=== PATIENT | male | born 1960 | race Caucasian/White ===

== ENCOUNTER 2021-04-12 14:12 | Inpatient (IN) | payer MEDICARE ==
[~2021-04-12] VITALS: Ht 180.3 cm; Wt 101.4 kg
[2021-04-12 18:19] LABS: HEMOGLOBIN 10.6 gm/dl (14.0-17.5); RED BLOOD COUNT 3.45 M/UL (4.20-5.50); WHITE BLOOD COUNT 13.1 K/UL (4.5-11.0)
[2021-04-12 18:37] LABS: BUN/CREATININE RATIO 18 (0-10)
[2021-04-13 04:45] LABS: HEMOGLOBIN 9.6 gm/dl (14.0-17.5); WHITE BLOOD COUNT 11.6 K/UL (4.5-11.0)
[2021-04-13 05:00] LABS: BUN/CREATININE RATIO 18 (0-10)
[2021-04-13 05:22] LABS: RED BLOOD COUNT 3.09 M/UL (4.20-5.50)
[2021-04-13] MEDS ORDERED: KLOR-CON M1010 MEQ PO (10:52)
[2021-04-13] MEDS ORDERED: QUETIAPINE FUM400 MG PO (10:53)
[2021-04-13] MEDS ORDERED: ATORVASTATIN CA80 MG PO (10:54)
[2021-04-13] MEDS ORDERED: ALPRAZOLAM1 MG PO (10:55)
[2021-04-13] MEDS ORDERED: PRILOSEC OTC20 MG PO (12:46)
[2021-04-13] MEDS ORDERED: ZESTRIL30 MG PO (12:46)
[2021-04-13] MEDS ORDERED: CYMBALTA60 MG PO (12:46)
[2021-04-13] MEDS ORDERED: TRAZODONE HCL100 MG PO (12:47)
[2021-04-13] MEDS ORDERED: ASPIRIN EC81 MG PO (12:47)
[2021-04-13] MEDS ORDERED: ZYLOPRIM 100 M100 MG PO (12:48)
[2021-04-13 23:08] LABS: ACINETOBACTER BAUMANNII Not Detected (Negative); CANDIDA ALBICANS Not Detected (Negative); CANDIDA KRUSEI Not Detected (Negative); CANDIDA TROPICALIS Not Detected (Negative); ENTEROCOCCUS Not Detected (Negative); ESCHERICHIA COLI Not Detected (Negative); HAEMOPHILUS INFLUENZAE Not Detected (Negative); KLEBSIELLA OXYTOCA Not Detected (Negative); KLEBSIELLA PNEUMONIAE Not Detected (Negative); KPC-CARBAPENEM-RESISTANCE GENE Not Detected (Negative); PROTEUS Not Detected (Negative); PSEUDOMONAS AERUGINOSA Not Detected (Negative); SERRATIA MARCESANS Not Detected (Negative); STAPHYLOCOCCUS AUREUS Not Detected (Negative); STREP AGALACTIAE (GROUP B) Not Detected (Negative); STREP PYOGENES (GROUP A) Not Detected (Negative); STREPTOCOCCUS Not Detected (Negative); mecA (METHICILLIN RESIST GENE Not Detected (Negative); vanA/B (VANCOMYCIN RESIST GENE Not Detected (Negative)
--- NOTE | 2021-04-14 00:02 | NUR ---
lab called with positive blood cultures, provider made aware as well as new onset of 100.4 temp. orders added and antibiotics are to be continued for now.
[2021-04-14 00:54] LABS: STAPHYLOCOCCUS DETECTED (Negative)
--- NOTE | 2021-04-14 07:01 | NUR ---
SEIZURE PRECAUTIONS ARE IN PLACE. SUCTION AT THE BEDSIDE, BED RAILS PADDED WITH BLANKETS AND TAPE BECAUSE NO PADS WERE AVAILABLE
[2021-04-15 06:07] LABS: BUN/CREATININE RATIO 16 (0-10)
[2021-04-17 05:38] LABS: HEMOGLOBIN 8.2 gm/dl (14.0-17.5); RED BLOOD COUNT 2.74 M/UL (4.20-5.50)
[2021-04-18 03:49] LABS: HEMOGLOBIN 7.9 gm/dl (14.0-17.5); RED BLOOD COUNT 2.59 M/UL (4.20-5.50); WHITE BLOOD COUNT 10.2 K/UL (4.5-11.0)
[2021-04-18 04:16] LABS: BUN/CREATININE RATIO 16 (0-10)
[2021-04-19 03:12] LABS: RED BLOOD COUNT 2.61 M/UL (4.20-5.50); WHITE BLOOD COUNT 10.6 K/UL (4.5-11.0)
[2021-04-19 03:29] LABS: BUN/CREATININE RATIO 15 (0-10)
== END 2021-04-19 16:00 | disposition home or self-care (01) | DRG 603 ==
LOC: ER1 14:12 → M/S 04-13 00:39 → CDU 04-13 00:39 → M/S 04-13 03:50
PROVIDERS: Internal Medicine; Physician Assistant; Student in an Organized Health Care Education/Training Program; ADMIT Internal Medicine
DX: L03.116 Cellulitis of left lower limb (principal); N17.9 Acute kidney failure, unspecified; D63.8 Anemia in other chronic diseases classified elsewhere; E78.5 Hyperlipidemia, unspecified; Z20.822 Contact with and (suspected) exposure to COVID-19; I12.9 Hypertensive chronic kidney disease with stage 1 through stage 4 chronic kidney disease, or unspecified chronic kidney disease; N18.30 Chronic kidney disease, stage 3 unspecified; E11.22 Type 2 diabetes mellitus with diabetic chronic kidney disease; E11.51 Type 2 diabetes mellitus with diabetic peripheral angiopathy without gangrene; I73.9 Peripheral vascular disease, unspecified; Z95.828 Presence of other vascular implants and grafts; Z88.8 Allergy status to other drugs, medicaments and biological substances; Z79.82 Long term (current) use of aspirin; Z79.899 Other long term (current) drug therapy
CPT/HCPCS: 36415; 72131; 73590; 75635; 80048; 80053; 80061; 80202; 82550; 83605; 83735; 83874; 85025; 87040; 87077; 87150; 93926; 93971; 96374; 99284; J0692; J1644; J2270; J3370; J7030; J7060; Q9967; U0002